=== PATIENT | female | born 1995 | race American Indian/Alaskan Native ===

== ENCOUNTER 2020-11-30 13:54 | Emergency (ER) | payer SELFPAY ==
[2020-11-30 14:35] VITALS: BP 132/74
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
[2020-11-30] MEDS: IBUPROFEN 800 MG TAB PO ONE ×2 (15:28→15:32)
== END 2020-11-30 15:35 | disposition home or self-care (01) ==
LOC: ED 13:54
DX: S16.1XXA Strain of muscle, fascia and tendon at neck level, initial encounter (principal); Z79.1 Long term (current) use of non-steroidal anti-inflammatories (NSAID); V49.59XA Passenger injured in collision with other motor vehicles in traffic accident, initial encounter; Y93.89 Activity, other specified; Y92.488 Other paved roadways as the place of occurrence of the external cause; Y99.8 Other external cause status
CPT/HCPCS: 99282